=== PATIENT | male | born 1995 | race Caucasian/White ===

== ENCOUNTER 2021-11-26 20:36 | Emergency (ER) | payer BC ==
[~2021-11-26] VITALS: Ht 190.5 cm; Wt 98.8 kg
[2021-11-26 20:48] VITALS: BP 140/72
--- NOTE | 2021-11-26 21:17 | PHYS DOC ---
Past Medical History Past Medical History: No Pertinent History Past Surgical History: No Surgical History Additional Past Surgical Histo: HEART SURGERY FOR "A HOLE IN MY HEART" Smoking Status: Current Every Day Smoker Alcohol Use: Rarely Drug Use: None General Adult EDM: Chief Complaint: SEXUALLY TRANSMITTED DISEASE HPI: HPI: Patient is a 26 year old male patient who presents the ED today to be retested for herpes. Patient states he was positive for herpes at the age of 18. He states he has a new girlfriend right now who is requesting him to be retested. Patient has no symptoms right now. Review of Systems: Review of Systems: Constitutional: Denies fever or chills. [] GI: Denies abdominal pain, nausea, vomiting, bloody stools or diarrhea. [] : Request to be retested for herpes denies dysuria. [] Musculoskeletal: Denies back pain or joint pain. [] Integument: Denies rash. [] Neurologic: Denies headache, focal weakness or sensory changes. [] Psychiatric: Denies depression or anxiety. [] Heart Score: C/O Chest Pain: N/A Risk Factors: Risk Factors: DM, Current or recent (<one month) smoker, HTN, HLP, family history of CAD, obesity. Risk Scores: Score 0 - 3: 2.5% MACE over next 6 weeks - Discharge Home Score 4 - 6: 20.3% MACE over next 6 weeks - Admit for Clinical Observation Score 7 - 10: 72.7% MACE over next 6 weeks - Early Invasive Strategies Allergies: Allergies: Allergies Coded Allergies Type Severity Reaction Last Updated Verified No Known Drug Allergies 07/31/15 No Physical Exam: PE: Constitutional: Well developed, well nourished, no acute distress, non-toxic appearance. [] Male : Deferred Skin: Warm, dry, no erythema, no rash. [] Back: No tenderness, no CVA tenderness. [] Extremities: No tenderness, no cyanosis, no clubbing, ROM intact, no edema. [] Neurologic: Alert and oriented X 3, normal motor function, normal sensory function, no focal deficits noted. [] Psychologic: Affect normal, judgement normal, mood normal. [] Current Patient Data: Vital Signs: Vital Signs Date Time Temp Pulse Resp B/P (MAP) Pulse Ox O2 Delivery O2 Flow Rate FiO2 11/26/21 20:48 98.2 100 18 140/72 (94) 100 Room Air 98.2 EKG: EKG: [] Radiology/Procedures: Radiology/Procedures: [] Course & Med Decision Making: Course & Med Decision Making Pertinent Labs and Imaging studies reviewed. (See chart for details) This a 26-year-old male patient who presents to the ED today requesting to be retested for herpes. He was positive at the age of 18. He has no symptoms right now. He has a new girlfriend insisting he needs to be retested. Informed patient herpes is a lifelong disease and there is no point of retesting. He requested to be tested for gonorrhea, chlamydia and trichomonas. Urine was taken to lab. He refused to be treated. Discharge to home. Dragon Disclaimer: Antonia Disclaimer: This electronic medical record was generated, in whole or in part, using a voice recognition dictation system. Departure Departure Impression: Primary Impression: Concern about STD in male without diagnosis Disposition: HOME / SELF CARE / HOMELESS Condition: STABLE Referrals: MICHELLE OROURKE MD (PCP) Please follow-up with your primary care doctor and the health department for further STD concerns Patient Instructions: Sexually Transmitted Disease, [id number] Additional Instructions: You were tested for gonorrhea, chlamydia and trichomonas. We will call you if positive in the next 3 to 7 days. If negative we will not call you. Please use protection at all times. Herpes is a lifelong disease. MARILEE BEAR [employer] November 26, 2021 21:17
[2021-11-26 21:36] LABS: AMORPHOUS SEDIMENT,UR PRESENT /HPF; BACTERIA,URINE FEW /HPF (0-FEW)
== END 2021-11-26 21:29 | disposition home or self-care (01) ==
LOC: ER 20:36
DX: Z20.2 Contact with and (suspected) exposure to infections with a predominantly sexual mode of transmission (principal); F17.200 Nicotine dependence, unspecified, uncomplicated
CPT/HCPCS: 81001; 87491; 87591; 99283